=== PATIENT | female | born 1970 | race Caucasian/White ===

== ENCOUNTER 2016-10-13 11:21 | Day surgery (SDC) | payer OTHER ==
[~2016-10-13] VITALS: Ht 152.4 cm; Wt 81.3 kg
[2016-10-13] MEDS ORDERED: OMEPRAZOLE (12:19)
[2016-10-13 12:22] VITALS: Ht 152.4 cm; Wt 81.3 kg
[2016-10-13] MEDS ORDERED: FENTAnyl 50 MCG/ML VIAL ONE (12:51)
[2016-10-13] MEDS ORDERED: MIDAZOLAM 1 MG/ML 2 ML INJ ONE (12:51)
[2016-10-13] MEDS ORDERED: PROPOFOL 20 ML ONE (12:51)
--- NOTE | 2016-10-13 13:24 | OPPN ---
Date/Time of Note Date/Time of Note DATE: 10/13/16 TIME: 13:22 Operative Report Preoperative Diagnosis Abdominal pain and vomiting Postoperative Diagnosis Small hiatal hernia and gastroesophageal reflux disease Gastritis with erosions Operation/Procedure Performed Esophagogastroduodenoscopy and biopsy Provider: DARINEL STEPHENS MD Anesthesia Type: MAC Estimated blood loss: none Transfusion Required: no Specimens Gastric mucosal biopsy Grafts/Implants: none Complications: no DARINEL STEPHENS MD Oct 13, 2016 13:23
[2016-10-13 13:45] VITALS: BP 111/68; RESP 14
--- NOTE | 2016-10-13 15:38 | GILP ---
DATE OF PROCEDURE: 10/13/2016 PROCEDURE PERFORMED: Esophagogastroduodenoscopy and biopsy. SURGEON: Phan Dougherty MD PREOPERATIVE DIAGNOSIS: 1. Abdominal pain. 2. Vomiting. POSTOPERATIVE DIAGNOSES: 1. Small hiatal hernia. 2. Gastroesophageal reflux disease. 3. Gastritis with erosions. 4. Gastric mucosal biopsies were taken for Helicobacter pylori test. INDICATION: Ms. Hermila Navarro is a 46-year-old female patient who has had upper abdominal pain and vomiting, not responding to therapy. Patient was scheduled for endoscopic examination for further evaluation. The procedure and possible complications were well explained to the patient. The patient understood and consented to the procedure. DESCRIPTION OF PROCEDURE: Under the influence of anesthesia, the gastroscope was carefully introduced into the esophagus. Under direct vision, it was advanced to the stomach, into the pylorus, into the duodenal bulb, and descending duodenum. FINDINGS: Esophagus: The patient had a small hiatal hernia and gastroesophageal reflux disease. Stomach: She had gastritis with erosions. Gastric mucosal biopsies were taken for H pylori test. Duodenum was normal. The patient tolerated the procedure very well. There was no complication from the procedure. At the end of procedure, she was awake with stable vital signs and she was discharged home in care of her family. IMPRESSION: Please see postop diagnoses. PLAN: 1. Omeprazole 40 mg p.o. q.a.m. 2. Zantac 300 mg p.o. at bedtime. 3. Await H pylori test report. Dictated By: MD TRENT Ritchie/dana/tiffanie /Document#: [id number]
== END 2016-10-13 15:22 | disposition home or self-care (01) ==
LOC: GIL 11:21
PROVIDERS: ATTEND Internal Medicine Gastroenterology
DX: K44.9 Diaphragmatic hernia without obstruction or gangrene (principal); K21.9 Gastro-esophageal reflux disease without esophagitis; K29.60 Other gastritis without bleeding
CPT/HCPCS: 43239; 87081; J2250; J3010; Z7610